=== PATIENT | female | born 1960 | race African-American/Black ===

== ENCOUNTER 2019-03-19 00:30 | Emergency (ER) | payer OTHER ==
[~2019-03-19] VITALS: Ht 160 cm; Wt 91.6 kg
[~2019-03-19 00:30] MED LIST: BACTRIM-DS1 EA PO; BLOOD PRESSURE; CEPHALEXIN500 MG PO; IBUPROFEN600 MG PO; NORCO 10/3251 EA ORAL; VICODIN 5-5001 EACH PO
--- NOTE | 2019-03-19 00:30 | NUR ---
ED Nurse Note: PAtient walked into ED c/o right ankle pain, states that she was trying to step over a curb earlier today to which she slipped and landed on a persons car. patient is reporting she heard a pop as well. patient presents with right ankle swelling, rates her pain a 10/10 pain. able to ambulate
--- NOTE | 2019-03-19 01:02 | Emergency Room Report ---
History of Present Illness General Chief Complaint: Lower Extremity Injury Source: Patient Present Illness HPI This is a 58-year-old female with history of high blood pressure. She presents with chief complaint of right foot pain. She was stepping off a curve is evening and twisted her foot. She says she felt a pop. Now with tenderness. Worse with bearing weight. No fever chills but no nausea no vomiting. Pain is 8 out of 10. No radiation. No other injury. Allergies: Coded Allergies: PENICILLINS (Verified Allergy, Severe, 10/13/12) Patient History Past Medical History: see triage record, old chart reviewed, HTN Past Surgical History: none Pertinent Family History: none Social History: Denies: smoking Last Menstrual Period: na Now: No Immunizations: other Reviewed Nursing Documentation: PMH: Agreed; PSxH: Agreed Nursing Documentation-PMH Hx Hypertension: Yes Review of Systems Eye: Denies: eye pain, blurred vision ENT: Denies: ear pain, nose congestion, throat swelling Respiratory: Denies: cough, shortness of breath Cardiovascular: Denies: chest pain, palpitations Gastrointestinal: Denies: abdominal pain, diarrhea, nausea, vomiting Musculoskeletal: Reports: joint pain; Denies: back pain Skin: Denies: rash Neurological: Denies: headache, numbness Endocrine: Denies: increased thirst, increased urine Hematologic/Lymphatic: Denies: easy bruising All Other Systems: negative except mentioned in HPI Physical Exam Vital Signs Date Time Temp Pulse Resp B/P (MAP) Pulse Ox O2 Delivery O2 Flow Rate FiO2 03/19/19 00:38 98.1 71 18 127/80 (96) 93 Room Air Vitals normal Sp02 EP Interpretation: reviewed, normal General Appearance: well appearing, no apparent distress, alert Head: normocephalic, atraumatic Eyes: bilateral eye PERRL, bilateral eye EOMI ENT: hearing grossly normal, normal pharynx Neck: full range of motion, supple, no meningismus Respiratory: chest non-tender, lungs clear, normal breath sounds Cardiovascular #1: regular rate, rhythm, no murmur Gastrointestinal: normal bowel sounds, non tender, no mass, no organomegaly, no bruit, non-distended Musculoskeletal: back normal, gait/station normal, normal range of motion, other - Tenderness to the base of the fifth metatarsal bone of right foot. Ankle stable. Knee stable. Pulses normal. Psychiatric: mood/affect normal Medical Decision Making Diagnostic Impression: Primary Impression: Sprain of foot, right Qualified Codes: S93.601A - Unspecified sprain of right foot, initial encounter ER Course Patient presents with a foot sprain. No fracture dislocation. Is been given orthopedic shoe and crutches. Will discharge home. Other X-Ray Diagnostic Results Other X-Ray Diagnostic Results : X-Ray ordered: Right foot x-rays # of Views/Limited Vs Complete: 3 View Indication: Pain EP Interpretation: Yes Interpretation: no dislocation, no soft tissue swelling, no fractures Impression: No acute disease Electronically Signed by: Oscar Tubbs MD Last Vital Signs Date Time Temp Pulse Resp B/P (MAP) Pulse Ox O2 Delivery O2 Flow Rate FiO2 03/19/19 00:38 98.1 71 18 127/80 (96) 93 Room Air Status: improved Disposition: HOME, SELF-CARE Condition: Stable Scripts Ibuprofen* (MOTRIN*) 600 Mg Tablet 600 MG ORAL THREE TIMES A DAY, #30 TAB 0 Refills Prov: Oscar Tubbs MD 03/19/19 Referrals: [facility],REFERRING (PCP) Patient Instructions: Foot Sprain Additional Instructions: Right foot. Ice pack to the area. Use crutches as needed. Return if worse. Follow-up with your doctor in 7 days. Oscar Tubbs MD Mar 19, 2019 01:02
[2019-03-19] MEDS ORDERED: IBUPROFEN600 MG ORAL (01:27)
[2019-03-19 01:32] VITALS: BP 122/76
--- NOTE | 2019-03-19 01:32 | NUR ---
ER DISCHARGE NOTE: Patient is cleared to be discharged per ERMD, pt is aox4, on room air, with stable vital signs. pt was given dc and prescription instructions, pt was able to verbalize understanding, pt id band removed without complications. pt is able to ambulate with steady gait. pt took all belongings. Patient was given an orthopedic shoe as well as given crutches
--- NOTE | 2019-03-19 12:38 | Diagnostic Imaging Report ---
Indication: Foot Pain Comparison: None Findings: 3 views of the right foot were obtained. No acute fractures, malalignment, erosions or periostitis are identified. Impression: No acute findings.
== END 2019-03-19 01:33 | disposition home or self-care (01) ==
LOC: EMR 00:46
DX: S93.601A Unspecified sprain of right foot, initial encounter (principal); I10 Essential (primary) hypertension; Z88.0 Allergy status to penicillin; X50.1XXA Overexertion from prolonged static or awkward postures, initial encounter; Y92.9 Unspecified place or not applicable
CPT/HCPCS: 99283